=== PATIENT | female | born 1990 | race Two or more races ===

== ENCOUNTER 2018-07-10 19:27 | Emergency (ER) | payer MEDICAID ==
[~2018-07-10] VITALS: Ht 167.6 cm; Wt 141.5 kg
[2018-07-10 19:40] VITALS: Ht 167.6 cm; Wt 141.5 kg
[2018-07-10 20:56] LABS: microscopic required? NO
[2018-07-10 21:30] LABS: UA SPECIFIC GRAVITY >=1.030 (1.005-1.035); urine erythrocyte NEGATIVE (NEGATIVE)
[2018-07-10 21:37] LABS: AMPHETAMINE QUAL UR NONE DETECTED (See below)
[2018-07-10 21:39] LABS: BASOPHIL % 0.3 % (0-2); RED CELL DISTRIBUTION WIDTH 13.7 % (11.5-14.5)
[2018-07-10 21:41] LABS: PLATELET COUNT 471 x10^3mcL (130-400)
[2018-07-10 22:02] LABS: CALCIUM 8.9 mg/dL (8.5-10.1); CARBON DIOXIDE 28.8 mmol/L (21-32); CHLORIDE SERUM 101 mmol/L (98-107); CREATININE SERUM 0.8 mg/dL (0.6-1.0); GFR1 > 60 mL/min; GLUCOSE SERUM 174 mg/dL (74-106); POTASSIUM SERUM 4.1 mmol/L (3.5-5.1); SODIUM SERUM 139 mmol/L (136-145)
[2018-07-10 22:07] LABS: ALBUMIN 3.6 g/dL (3.4-5.0); ALKALINE PHOSPHATASE 119 U/L (46-116); ALT/SGPT 37 U/L (14-59); AST/SGOT 23 U/L (15-37); BILIRUBIN TOTAL 0.25 mg/dL (0.20-1.00); TOTAL PROTEIN, SERUM 8.2 g/dL (6.4-8.2)
[2018-07-10 23:47] VITALS: BP 122/74
== END 2018-07-10 23:47 | disposition home or self-care (01) ==
LOC: ED 19:27
PROVIDERS: Emergency Medicine
DX: S16.1XXA Strain of muscle, fascia and tendon at neck level, initial encounter (principal); S40.021A Contusion of right upper arm, initial encounter; F41.9 Anxiety disorder, unspecified; W18.39XA Other fall on same level, initial encounter; Y93.89 Activity, other specified; Y92.89 Other specified places as the place of occurrence of the external cause; Y99.8 Other external cause status
CPT/HCPCS: 36415; 90715; G0480; Q0092

== ENCOUNTER 2018-07-15 18:54 | Emergency (ER) | payer MEDICAID ==
[~2018-07-15] VITALS: Ht 167.6 cm; Wt 143.8 kg
[2018-07-15 18:56] VITALS: BP 125/73; Ht 167.6 cm; Wt 143.8 kg
== END 2018-07-15 19:53 | disposition left against medical advice (07) ==
LOC: ED 18:54
DX: Z53.21 Procedure and treatment not carried out due to patient leaving prior to being seen by health care provider (principal)

== ENCOUNTER 2018-08-21 09:31 | Emergency (ER) | payer MEDICAID ==
[~2018-08-21] VITALS: Ht 167.6 cm; Wt 136.1 kg
[2018-08-21 09:49] VITALS: Ht 167.6 cm; Wt 136.1 kg
[2018-08-21 10:42] LABS: microscopic required? NO
[2018-08-21 10:56] LABS: CHLORIDE SERUM 99 mmol/L (98-107); CREATININE SERUM 0.7 mg/dL (0.6-1.0); GFR1 > 60 mL/min; GLUCOSE SERUM 186 mg/dL (74-106); POTASSIUM SERUM 4.3 mmol/L (3.5-5.1); SODIUM SERUM 136 mmol/L (136-145)
[2018-08-21 10:58] LABS: BASOPHIL % 0.3 % (0-2); RED CELL DISTRIBUTION WIDTH 13.3 % (11.5-14.5)
[2018-08-21 11:04] LABS: PLATELET COUNT 512 x10^3mcL (130-400)
[2018-08-21 11:08] LABS: ALBUMIN 3.5 g/dL (3.4-5.0); ALKALINE PHOSPHATASE 128 U/L (46-116); ALT/SGPT 35 U/L (14-59); AST/SGOT 22 U/L (15-37); BILIRUBIN TOTAL 0.3 mg/dL (0.20-1.00); FREE T4 1.35 ng/dL (0.76-1.46); LIPASE 138 IU/L (73-393); TOTAL PROTEIN, SERUM 7.9 g/dL (6.4-8.2)
[2018-08-21 11:28] LABS: AMPHETAMINE QUAL UR NONE DETECTED (See below)
[2018-08-21 12:05] LABS: UA SPECIFIC GRAVITY <=1.005 (1.005-1.035); urine erythrocyte NEGATIVE (NEGATIVE)
[2018-08-21 13:55] VITALS: BP 128/74
== END 2018-08-21 13:55 | disposition home or self-care (01) ==
LOC: ED 09:31
PROVIDERS: Emergency Medicine
DX: R51 Headache (principal); R10.9 Unspecified abdominal pain; R06.02 Shortness of breath; F41.9 Anxiety disorder, unspecified; F12.10 Cannabis abuse, uncomplicated; R11.10 Vomiting, unspecified; R05 Cough
CPT/HCPCS: 36415; 36600; 84439; 87804; G0480